=== PATIENT | female | born 2000 | race African-American/Black ===

== ENCOUNTER 2024-01-28 13:32 | Emergency (ER) | payer OTHER ==
[~2024-01-28] VITALS: Ht 172.7 cm; Wt 104.5 kg
[2024-01-28] MEDS ORDERED: NIFE1TAB52 PO (13:43)
[2024-01-28] MEDS ORDERED: ZOLO25TA PO (13:43)
[2024-01-28] MEDS ORDERED: MULTTAB20 PO (13:43)
[2024-01-28 15:59] LABS: HEMATOCRIT 43.1 % (36.0-47.0); HEMOGLOBIN 13.8 g/dl (12.0-15.5); MEAN CORPUSCULAR HEMOGLOBIN 29.9 pg (27.0-33.0); MEAN CORPUSCULAR VOLUME 93.5 fl (80.0-96.0); PLATELET COUNT, AUTOMATED 287 10^3/uL (150-450); RED BLOOD COUNT 4.61 10^6/uL (4.00-5.40); WHITE BLOOD COUNT 7.2 10^3/uL (4.0-10.0)
[2024-01-28 16:44] LABS: HCG, SERUM QUANTITATIVE 1729.8 MIU/ML (<4.2)
[2024-01-28 17:03] LABS: BLOOD UREA NITROGEN 6 MG/DL (9-23); CALCIUM LEVEL 9.8 MG/DL (8.5-10.1); CARBON DIOXIDE LEVEL 22 MMOL/L (20-31); CHLORIDE LEVEL 106 MMOL/L (98-107); CREATININE FOR GFR 0.65 MG/DL (0.55-1.30); GLOMERULAR FILTRATION RATE > 60.0 (>60); GLUCOSE, FASTING 74 MG/DL (60-100); SODIUM LEVEL 137 MMOL/L (136-145)
[2024-01-28 17:06] LABS: LIPASE 30 U/L (12-53)
[2024-01-28] MEDS: METOCLOPRAMIDE INJ 10MG/2ML VIAL IV ONE (18:12)
[2024-01-28] MEDS ORDERED: REGL10TA6 PO (19:45)
[2024-01-28 19:53] VITALS: BP 133/86; TEMP 98; O2SAT 100
== END 2024-01-28 19:56 | disposition home or self-care (01) ==
LOC: M ED 13:32
DX: O99.891 Other specified diseases and conditions complicating pregnancy (principal); R11.0 Nausea; O16.1 Unspecified maternal hypertension, first trimester; Z3A.01 Less than 8 weeks gestation of pregnancy
CPT/HCPCS: 76801; 76830; 80048; 81001; 83690; 84702; 85027; 93976; 96374; 99284; J2765

== ENCOUNTER → 2024-05-19 | Outpatient (CLI) | payer OTHER ==
[~2024-05-19] MED LIST: MULTTAB20 PO; NIFE1TAB52 PO; REGL10TA6 PO; ZOLO25TA PO
== END ==
LOC: M WHC 14:05
PROVIDERS: ATTEND Midwife
DX: Z34.82 Encounter for supervision of other normal pregnancy, second trimester (principal); Z3A.20 20 weeks gestation of pregnancy

== ENCOUNTER → 2024-07-15 | Outpatient (CLI) | payer OTHER ==
[2024-07-15 16:29] LABS: HEMATOCRIT 33.3 % (36.0-47.0); HEMOGLOBIN 10.7 g/dl (12.0-15.5); MEAN CORPUSCULAR HEMOGLOBIN 29.6 pg (27.0-33.0); MEAN CORPUSCULAR HGB CONC 32.1 g/dl (32.0-36.5); PLATELET COUNT, AUTOMATED 313 10^3/uL (150-450); RED BLOOD COUNT 3.62 10^6/uL (4.00-5.40); WHITE BLOOD COUNT 9.8 10^3/uL (4.0-10.0)
== END ==
LOC: M LAB 14:40
PROVIDERS: ATTEND Midwife
DX: Z34.80 Encounter for supervision of other normal pregnancy, unspecified trimester (principal)